=== PATIENT | female | born 1935 | race Caucasian/White ===

== ENCOUNTER 2016-10-24 12:23 | Inpatient (IN) | payer MEDICARE, OTHER ==
--- NOTE | ~2016-10-24 | HP ---
History And Physical [place] [id number] [facility] [place]. [address] NAME: ANABEL ZAMAN : 37 STATUS : DIS IN PAT#: [id number] AGE: 81 ADM/REG DATE : 10/24/16 MR#: [id number] REPORT SERV DATE: 12/17/16 DICTATED BY: JON DAHL DATE: 12/17/16 REPORT STATUS : Draft TRANSCRIBED BY: MODL DATE: 12/17/16 DATE OF ADMISSION: 10/24/2016 ADMISSION HISTORY AND PHYSICAL WELL NOTE SUMMARY DATE OF : 10/25/2016. HISTORY: This patient is an 81-year-old white female, who was admitted because of lack of p.o. intake, inability to take fluids, and refusing medications and liquids and because of her marked weight loss. She had been seen for this in the preceding months and Megace was tried without really a good result and she was unable to participate in physical therapy that was attempted and did not respond to treatment for depression. She had a history of a colon resection requiring a colostomy and was in hopes of getting an internal ostomy but became quite despondent without the primary cause of her diminished p.o. intake. Additional history included arthritis and she had previously responded to Pilates. She had become somewhat agitated prior to coming to the emergency room and it was felt she may have infectious cause such as a UTI and she had become somewhat agitated and as she had been taking some fluids, was admitted with severe dehydration and agitation. The patient's daughter and son were at her bedside and agreed that most treatment was futile. We admitted her with the intent of comfort care measures. Vital signs were as recorded and she was ill- appearing and having slowed respirations with periods of apnea. Lungs sounded clear. Mucous membranes dry. Abdomen is soft and nontender with no apparent masses. Lower extremities negative. Over the 8 hours of her admission, she became increasingly unresponsive with long periods of apnea, and she eventually the morning of 10/25/2016. Family was at her bedside. ALPESH/GRISELDA Jon Dahl M.D. / [id number] CC: Jon Dahl M.D.
[~2016-10-24 12:23] MED LIST: ALLEGRA180 PO; ANUCORT HC PR; ASAB PO; ASACOL PO; ATV.5 PO; AZULFENTAB PO; CALTRA600D PO; CEFT5 PO; CELEBREX2 PO; CITRACAL PO; COREG3 PO; COREG6 PO; COZ25 PO; COZ50 PO; DORZOLAMIDE2 % OPH; DULERA 100 MCG/13 GM INH; DULERA 200 MCG/13 GM INH; FEOSOL200 MG; FERROUS SULF325 M1 PO; FOLIC PO; HALF81 PO; LEVOTHYROXIN50 MCG PO; LIPITOR10 PO; LUMIGAN2.5 ML OPH; MESALAMINE 4 GM PR; MIACALCIN NAS; MTX2.5 PO; MULTIPLE VIT PO; NORCO1 TA1 PO; OMEGA-3 KRILL PO; OS500+D PO; P1 PO; P10 PO; P5 PO; PCET PO; PROTONIX PO; RECLAST IV; REQUIP2 PO; SANTYL250 MG/GM TOP; SINGULAIR1 PO; SULFAZINE EC500 MG PO; SYMBICORT 160/41 INH INH; SYN.05 PO; TUMERIC; VITAMIN D31000 UNIT PO; VITAMIN D400 UNI1 PO; XALAT OP; XALAT OPH
[2016-10-24] MEDS ORDERED: VITAMIN D1000 UNI1 PO (13:15)
[2016-10-24] MEDS ORDERED: ASAB PO (13:15)
[2016-10-24] MEDS ORDERED: TRUSOPT2 % OPH (13:16)
[2016-10-24] MEDS ORDERED: MARI2.5 PO (13:16)
[2016-10-24] MEDS ORDERED: FOLIC PO (13:16)
[2016-10-24] MEDS ORDERED: PROAMAT5 PO (13:17)
[2016-10-24] MEDS ORDERED: REM15 PO (13:18)
[2016-10-24] MEDS ORDERED: PROTONIX PO (13:18)
[2016-10-24] MEDS ORDERED: PHOS-NAK PO (13:19)
[2016-10-24] MEDS ORDERED: P1 PO (13:20)
[2016-10-24] MEDS ORDERED: MEGACEUDL PO (13:21)
[2016-10-24] MEDS ORDERED: SUCR PO (13:21)
[2016-10-24] MEDS ORDERED: DULERA 200 MCG/13 GM INH (13:21)
[2016-10-24] MEDS ORDERED: LEVOTHYROXIN50 MCG PO (13:22)
[2016-10-24] MEDS ORDERED: OYST-CAL500 MG PO (13:22)
[2016-10-24] MEDS ORDERED: MVI PO (13:22)
[2016-10-24] MEDS ORDERED: LEXAPRO10 PO (13:23)
[2016-10-24] MEDS ORDERED: CLARIT10 PO (13:23)
[2016-10-24] MEDS ORDERED: VISINE-A EYE AL15 ML OPH (13:23)
[2016-10-24] MEDS ORDERED: ARICEPT5 PO (13:24)
[2016-10-24] MEDS ORDERED: ABILIFY2 PO (13:24)
[2016-10-24] MEDS ORDERED: SAS500 PO (13:26)
== END 2016-10-25 10:33 | disposition expired | DRG 640 ==
LOC: ER 12:23 → 4EA 17:25
DX: E86.9 Volume depletion, unspecified (principal); G93.40 Encephalopathy, unspecified; E46 Unspecified protein-calorie malnutrition; J44.9 Chronic obstructive pulmonary disease, unspecified; Z68.1 Body mass index [BMI] 19.9 or less, adult; R62.7 Adult failure to thrive; Z51.5 Encounter for palliative care; M06.9 Rheumatoid arthritis, unspecified; E03.9 Hypothyroidism, unspecified; K21.9 Gastro-esophageal reflux disease without esophagitis; F32.9 Major depressive disorder, single episode, unspecified
CPT/HCPCS: 93005; 96372; 96374; 96375; 96376; 99285; A9270-GY; J1170; J3486